=== PATIENT | male | born 1980 | race Caucasian/White ===

== ENCOUNTER 2017-11-11 20:25 | Emergency (ER) | payer OTHER ==
[~2017-11-11] VITALS: Ht 175.3 cm; Wt 115.7 kg
[2017-11-11 20:26] VITALS: BP 157/101
[2017-11-11] MEDS ORDERED: DEXAMETHASONE 4 MG TABLET PO STA (20:57)
[2017-11-11] MEDS ORDERED: IBUPROFEN 800 MG TABLET PO STA (20:57)
[2017-11-11] MEDS ORDERED: KETOROLAC 30 MG/1 ML ONE (21:13)
[2017-11-11] MEDS ORDERED: DEXAMETHASONE 4 MG TABLET ONE (21:13)
[2017-11-11] MEDS ORDERED: KETOROLAC 30 MG/1 ML IM ONE (21:30)
== END 2017-11-11 23:11 | disposition home or self-care (01) ==
LOC: ED 20:32
DX: B34.9 Viral infection, unspecified (principal); J02.9 Acute pharyngitis, unspecified; H66.002 Acute suppurative otitis media without spontaneous rupture of ear drum, left ear
CPT/HCPCS: 87081; 87880; 96372; 99284; J1885

== ENCOUNTER 2018-01-09 22:20 | Emergency (ER) | payer OTHER ==
[~2018-01-09] VITALS: Ht 175.3 cm; Wt 115.7 kg
[2018-01-09] MEDS ORDERED: LORazepam 1MG TABLET PO ONE (23:00)
[2018-01-09] MEDS ORDERED: HYDROcodone/APAP 5/325 TABLET PO ONE (23:00)
[2018-01-09] MEDS ORDERED: LORazepam 1MG TABLET ONE (23:04)
[2018-01-09] MEDS ORDERED: HYDROcodone/APAP 5/325 TABLET ONE (23:04)
[2018-01-10 00:30] VITALS: BP 146/90
== END 2018-01-10 01:04 | disposition home or self-care (01) ==
LOC: ED 23:26
DX: M79.602 Pain in left arm (principal); F41.1 Generalized anxiety disorder; Z87.891 Personal history of nicotine dependence
CPT/HCPCS: 71045; 93005; 99284

== ENCOUNTER 2020-05-13 17:51 | Emergency (ER) | payer MEDICARE, OTHER ==
[~2020-05-13] VITALS: Ht 175.3 cm; Wt 104.3 kg
[2020-05-13] MEDS ORDERED: SODIUM CHLORIDE 0.9% 1,000ML IVBOLUS ONE (18:00)
[2020-05-13] MEDS ORDERED: SODIUM CHLORIDE FLUSH 10ML SYR IVF ONE (18:00)
[2020-05-13 18:49] LABS: BASOPHILS % (AUTO) 1 % (0-1); EOSINOPHILS % (AUTO) 4 % (1-7); LYMPHOCYTES % (AUTO) 13 % (22-44); MD NO; MEAN CORPUSCULAR HEMOGLOBIN 29.8 pg (27.5-34.5); MEAN CORPUSCULAR HGB CONC 33.7 g/dL (33.2-36.2); MEAN PLATELET VOLUME 9.2 fL (7.4-10.4); MONOCYTES % (AUTO) 7 % (2-9); NEUTROPHILS % (AUTO) 75 % (42-75); PLATELET COUNT 316 x10^3/uL (130-400); RED BLOOD COUNT 4.71 x10^6/uL (4.38-5.82); RED CELL DISTRIBUTION WIDTH 13.5 % (9.4-14.8)
[2020-05-13 18:58] LABS: ALBUMIN 3.5 g/dL (3.4-5.0); ANION GAP 6 mmol/L (5-15); CALCIUM 8.1 mg/dL (8.5-10.1); CHLORIDE 108 mmol/L (98-107); CREATININE 0.94 mg/dL (0.7-1.3)
[2020-05-13] MEDS ORDERED: HYDROcodone/APAP 5/325 TABLET PO ONE (20:12)
[2020-05-13] MEDS ORDERED: HYDROcodone/APAP 5/325 TABLET ONE (20:20)
[2020-05-13] MEDS ORDERED: CLINDAMYCIN PMX 900MG/50ML 50 ML ONE (21:18)
[2020-05-13 21:28] VITALS: BP 134/84
[2020-05-13] MEDS ORDERED: CLINDAMYCIN PMX 900MG/50ML 50 ML IV ONE (21:30)
--- NOTE | 2020-05-13 22:15 | NUR ---
REPORT FROM NARESH KIMBLE. ABX CONTINUES TO INFUSE. NO S/S OF ABX RXN NOTED.
--- NOTE | 2020-05-13 22:49 | NUR ---
ABX FINISHED. IV DC'D. PT OFF MONITORING AND IS UP TO DRESS SELF. AWAITING DC PW
--- NOTE | 2020-05-13 23:04 | NUR ---
DC EDUCATION PROVIDED, PT DEMONSTRATES UNDERSTANDING. PT AMBULATED STEADILY TO DC WITH RN. PT TO AMBULATE HOME WHICH PT STATES IS "RIGHT ACROSS THE STREET"
== END 2020-05-13 23:07 | disposition home or self-care (01) ==
LOC: ED 20:52
DX: S70.312A Abrasion, left thigh, initial encounter (principal); L03.116 Cellulitis of left lower limb; F17.210 Nicotine dependence, cigarettes, uncomplicated; Z90.89 Acquired absence of other organs; X58.XXXA Exposure to other specified factors, initial encounter; Y93.89 Activity, other specified; Y92.89 Other specified places as the place of occurrence of the external cause; Y99.8 Other external cause status
CPT/HCPCS: 36415; 80048; 82040; 83605; 85025; 87040; 96365; 99284; 99406

== ENCOUNTER 2020-12-10 16:33 | Emergency (ER) | payer MEDICARE ==
[~2020-12-10] VITALS: Ht 175.3 cm; Wt 102.0 kg
--- NOTE | 2020-12-10 17:04 | NUR ---
[facility] natural remedy consultant: Pt walked back from lobby to room at this time.
--- NOTE | 2020-12-10 17:20 | NUR ---
pt presents to ed with c/o periumbilical pain that started this am. states they have had increased urinary frequency the past week along with nausea/diarrhea. denies vomitting. ermd at bedside for eval.
[2020-12-10] MEDS ORDERED: KETOROLAC 30 MG/1 ML IM ONE (17:30)
[2020-12-10 17:47] LABS: BASOPHILS % (AUTO) 1 % (0-1); EOSINOPHILS % (AUTO) 2 % (1-7); LYMPHOCYTES % (AUTO) 21 % (22-44); MEAN CORPUSCULAR HEMOGLOBIN 29.7 pg (27.5-34.5); MEAN CORPUSCULAR HGB CONC 34.4 g/dL (33.2-36.2); MEAN PLATELET VOLUME 8.7 fL (7.4-10.4); MONOCYTES % (AUTO) 8 % (2-9); NEUTROPHILS % (AUTO) 68 % (42-75); PLATELET COUNT 335 x10^3/uL (130-400); RED BLOOD COUNT 5.22 x10^6/uL (4.38-5.82); RED CELL DISTRIBUTION WIDTH 14.5 % (9.4-14.8)
[2020-12-10 17:50] LABS: MICROSCOPIC NOT IND
[2020-12-10 17:57] LABS: ALANINE AMINOTRANSFERASE 27 U/L (12-78); ALBUMIN 3.6 g/dL (3.4-5.0); ANION GAP 8 mmol/L (5-15); CALCIUM 8.4 mg/dL (8.5-10.1); CHLORIDE 107 mmol/L (98-107); CREATININE 0.75 mg/dL (0.7-1.3)
[2020-12-10 18:00] LABS: ALKALINE PHOSPHATASE 83 U/L (45-117); BILIRUBIN,TOTAL 0.2 mg/dL (0.2-1.0)
[2020-12-10] MEDS ORDERED: KETOROLAC 60 MG/2 ML ONE (18:01)
--- NOTE | 2020-12-10 18:09 | NUR ---
pt medicated per order for pain, tolerated well. pt a&o, resps even and unlabored, vss, nadn. call light in reach.
[2020-12-10 18:15] VITALS: BP 136/85
--- NOTE | 2020-12-10 18:52 | NUR ---
report from dima wilkinson
--- NOTE | 2020-12-10 18:52 | NUR ---
report given to clifford wilkinson
== END 2020-12-10 19:09 | disposition home or self-care (01) ==
LOC: ED 17:03
DX: R10.84 Generalized abdominal pain (principal)
CPT/HCPCS: 36415; 74021; 80053; 81003; 83690; 85025; 96372; 99284; J1885